=== PATIENT | female | born 1955 ===

== ENCOUNTER 2020-11-17 05:58 | Day surgery (SDC) | payer OTHER ==
[~2020-11-17 05:58] MED LIST: CLARITIN-D 121 EACH PO; FOLIC ACID20 MG PO; HYDRODIURIL12.5 MG PO; LOSARTAN POTASS50 MG PO; METFORMIN HCL750 MG PO; SINGULAIR10 MG PO; TREXALL5 MG PO; VERELAN240 MG PO
[2020-11-17] MEDS ORDERED: ASA325 MG PO (09:11)
[2020-11-17] MEDS ORDERED: ULTRACET PO (09:11)
[2020-11-17] MEDS ORDERED: DUI500 PO (09:11)
== END 2020-11-17 11:40 | disposition home or self-care (01) ==
LOC: CIR.AMB 05:58
PROVIDERS: ATTEND Orthopaedic Surgery
DX: S83.231A Complex tear of medial meniscus, current injury, right knee, initial encounter (principal); S83.281A Other tear of lateral meniscus, current injury, right knee, initial encounter; M22.41 Chondromalacia patellae, right knee; M23.41 Loose body in knee, right knee; Z20.822 Contact with and (suspected) exposure to COVID-19